=== PATIENT | female | born 1950 | race Two or more races ===

== ENCOUNTER 2018-04-10 13:54 | Outpatient (CLI) | payer MEDICARE, OTHER ==
--- NOTE | 2018-04-11 16:54 | Diagnostic Imaging Report ---
Indication: Cough Technique: 2 views of the chest Comparison: None Findings: Lungs and pleural spaces are clear. Heart size is normal. There are cholecystectomy clips. The aorta is elongated tortuous and calcified. There are degenerative changes of the thoracic spine Impression: No acute process
== END 2018-04-10 15:54 | disposition home or self-care (01) ==
LOC: RAD 13:54
DX: R05 Cough (principal)
CPT/HCPCS: 71046